=== PATIENT | male | born 1995 | race Hispanic/Latino ===

== ENCOUNTER 2017-12-30 22:20 | Emergency (ER) | payer MEDICAID, OTHER ==
[2017-12-30 22:41] LABS: BASOPHILS % (AUTO) 0.4 % (0.0-5.0); EOSINOPHILS % (AUTO) 1.7 % (0.0-8.0); HEMATOCRIT 45.5 % (42-54); MEAN CORPUSCULAR HEMOGLOBIN 30.9 pg (27.0-33.0); MEAN CORPUSCULAR HGB CONC 32.7 g/dL (32.0-36.0); MEAN CORPUSCULAR VOLUME 94.2 fL (79-99); MONOCYTES % (AUTO) 8.9 % (3.0-13.0); NUCLEATED RED BLOOD CELLS 0.1 % (0.0-0.19); PLATELET COUNT (AUTO) 162 K/uL (130-400); RED BLOOD CELL COUNT(AUTO) 4.83 MIL/uL (4.50-6.20); RED CELL DISTRIBUTION WIDTH 13.8 % (11.0-15.5); WHITE BLOOD COUNT (AUTO) 7.1 K/uL (4.8-10.8)
[2017-12-30 22:54] LABS: CARBON DIOXIDE 28 mmol/L (21-32); CHLORIDE 105 mmol/L (101-111); CREATININE 1.2 mg/dL (0.5-1.5); GLOMERULAR FILTR. RATE CALC 80 mL/min (>60); GLUCOSE,RANDOM 85 mg/dL (70-105); POTASSIUM 4.2 mmol/L (3.5-5.1); SODIUM SERUM 139 mmol/L (136-145); UREA NITROGEN, BLOOD 13 mg/dL (7-18)
[2017-12-30] MEDS ORDERED: ONDANSETRON HCL 4 MG/2 ML VIAL ONE (22:54)
[2017-12-30 22:57] LABS: APPEARANCE,URINE Clear (CLEAR); BILIRUBIN,URINE Negative (NEGATIVE); COLOR,URINE Yellow (YELLOW); GLUCOSE, URINE (UA) Negative (NEGATIVE); KETONES,URINE Negative (NEGATIVE); LEUKOCYTE ESTERASE ,URINE Negative (NEGATIVE); NITRATE,URINE Negative (NEGATIVE); OCCULT BLOOD,URINE Negative (NEGATIVE); PH,URINE 7.5 (5.0-8.0); PROTEIN,URINE Negative (NEGATIVE); UROBILINOGEN,URINE 0.2 mg/dL (0.2-1.0)
[2017-12-30 22:58] LABS: ACETAMINOPHEN 7 mcg/mL (10-29); ALANINE AMINOTRANSFERASE 83 U/L (12-78); ALBUMIN 3.7 g/dL (3.5-5.0); ASPARTATE AMINOTRANSFERASE 49 U/L (10-37); BILIRUBIN,TOTAL 0.4 mg/dL (0.2-1.0); TOTAL PROTEIN, SERUM 6.7 g/dL (6.0-8.3)
[2017-12-30 22:59] LABS: ALCOHOL, BLOOD < 3 mg/dL (0-10); SALICYLATE < 2.8 mg/dL (2.8-20.0)
[2017-12-30 23:34] LABS: AMPHET/METH SCREEN,URINE NEGATIVE (NEGATIVE); BARBITURATE SCREEN, URINE NEGATIVE (NEGATIVE); BENZODIAZEPINES SCREEN,URINE NEGATIVE (NEGATIVE); CANNABINOID SCREEN,URINE NEGATIVE (NEGATIVE); COCAINE SCREEN,URINE NEGATIVE (NEGATIVE); OPIATE SCREEN,URINE NEGATIVE (NEGATIVE); PHENCYCLIDINE SCREEN,URINE NEGATIVE (NEGATIVE)
== END 2017-12-31 00:27 | disposition home or self-care (01) ==
LOC: EDH 22:20 → EEVIPCON 22:20 → EDH 12-31 00:27
DX: R41.82 Altered mental status, unspecified (principal)
CPT/HCPCS: 36415; 70450; 80053; 80305; 81003; 82948; 85025; 94760; 96374; 99285; G0480 ×2; G0481; J2405

== ENCOUNTER 2023-07-22 16:03 | Emergency (ER) | payer MEDICAID, OTHER ==
[~2023-07-22] VITALS: Ht 170.2 cm; Wt 77.1 kg
[2023-07-22 16:46] LABS: BASOPHILS # (AUTO) 0.03 K/uL (0.00-0.20); BASOPHILS % (AUTO) 0.2 % (0.0-5.0); EOSINOPHILS % (AUTO) 0.7 % (0.0-8.0); HEMATOCRIT 41.2 % (42-54); IMMATURE GRANULOCYTE ABSOLUTE 0.06 K/uL (0-1); LYMPHOCYTES # (AUTO) 1.2 K/uL (1.0-4.8); LYMPHOCYTES % (AUTO) 8.3 % (21.0-51.0); MEAN CORPUSCULAR HEMOGLOBIN 30.5 pg (27.0-33.0); MEAN CORPUSCULAR HGB CONC 32.8 g/dL (32.0-36.0); MONOCYTES % (AUTO) 6.8 % (3.0-13.0); NEUTROPHILS # (AUTO) 11.7 K/uL (1.8-7.7); NEUTROPHILS % (AUTO) 83.6 % (40.0-77.0); PLATELET COUNT (AUTO) 380 K/uL (130-400); RED BLOOD CELL COUNT(AUTO) 4.43 MIL/uL (4.50-6.20); RED CELL DISTRIBUTION WIDTH 12.8 % (11.0-15.5)
[2023-07-22] MEDS: MORPHINE 2 MG SYG IVP ONE (16:55)
[2023-07-22] MEDS: PANTOPRAZOLE 40 MG/VIAL IVP ONE (16:55)
[2023-07-22] MEDS: MAG/ALUM/SIMETH 30 ML UDCUP PO ONE (16:55)
[2023-07-22] MEDS: LIDOCAINE HCL 2% VISCOUS 15 ML UDCUP PO ONE (16:55)
[2023-07-22] MEDS: ONDANSETRON 4MG INJ IVP ONE (16:55)
[2023-07-22] MEDS: 0.9%NACL 1000ML 1,000 ML IV ONE (16:55)
[2023-07-22] MEDS: DICYCLOMINE HCL 10 MG/5 ML ML PO ONE (16:55)
[2023-07-22 16:57] LABS: CREATININE 1.1 mg/dL (0.5-1.3)
[2023-07-22 17:01] LABS: ALBUMIN 3.2 g/dL (3.5-5.0); BILIRUBIN,TOTAL 0.2 mg/dL (0.2-1.0); TOTAL PROTEIN, SERUM 7.3 g/dL (6.0-8.3)
[2023-07-22 17:50] LABS: WBC MORPHOLOGY CONSISTENT W/DIFF
[2023-07-22] MEDS ORDERED: LOPE2TAB26 PO (18:34)
[2023-07-22] MEDS ORDERED: ESOM40CA PO (18:34)
[2023-07-22] MEDS ORDERED: ONDA4TAB10 PO (18:34)
[2023-07-22] MEDS ORDERED: CIPR750T17 PO (18:34)
[2023-07-22 18:39] VITALS: BP 122/72; PULSE 70; RESP 18; O2SAT 99
== END 2023-07-22 18:49 | disposition home or self-care (01) ==
LOC: EDH 16:03
DX: K52.9 Noninfective gastroenteritis and colitis, unspecified (principal)
CPT/HCPCS: 99284; 96374; 96375; 80053; 83690; 85025; 36415; J2270; J7030; J2405; S0164; C9113

== ENCOUNTER 2023-10-03 12:15 | Emergency (ER) | payer MEDICAID ==
[~2023-10-03] VITALS: Ht 167.6 cm; Wt 90.7 kg
[~2023-10-03 12:15] MED LIST: CIPR750T17 PO; ESOM40CA PO; LOPE2TAB26 PO; ONDA-243 PO
[2023-10-03] MEDS ORDERED: NEOM28OI48 TP (13:23)
[2023-10-03 13:29] VITALS: BP 115/62; PULSE 78; RESP 20; O2SAT 98
== END 2023-10-03 13:32 | disposition home or self-care (01) ==
LOC: EDH 12:15
DX: T22.211D Burn of second degree of right forearm, subsequent encounter (principal); Z79.899 Other long term (current) drug therapy; X08.8XXD Exposure to other specified smoke, fire and flames, subsequent encounter
CPT/HCPCS: 99282